=== PATIENT | female | born 1980 | race Caucasian/White ===

== ENCOUNTER 2017-05-22 06:36 | Emergency (ER) | payer OTHER, MEDICARE ==
[2017-05-22 08:22] LABS: ADD MAN DIFF? NO
[2017-05-22 08:26] LABS: WHITE BLOOD COUNT 13.6 10^3/ul (4.8-10.8)
[2017-05-22 08:26] LABS: BASOPHIL # 0.1 10^3/ul (0.0-0.1); BASOPHILS % 0.4 % (0.0-2.0); EOSINOPHILS % 0.1 % (0.0-7.0); HEMATOCRIT 31.4 % (37.0-47.0); HEMOGLOBIN 9.3 g/dl (12.0-16.0); LYMPHOCYTES # 2.2 10^3/ul (0.8-2.9); LYMPHOCYTES % 16.1 % (15.0-51.0); MEAN CORPUSCULAR HEMOGLOBIN 19.4 pg (29.0-33.0); MEAN CORPUSCULAR HGB CONC 29.6 g/dl (32.0-37.0); MEAN CORPUSCULAR VOLUME 65.4 fl (82.0-101.0); MEAN PLATELET VOLUME 9.4 fl (7.4-10.4); MONOCYTE # 0.7 10^3/ul (0.3-0.9); MONOCYTES % 4.9 % (0.0-11.0); NEUTROPHIL # 10.5 10^3/ul (1.6-7.5); NEUTROPHILS % 77.5 % (39.0-77.0); PLATELET COUNT 416 10^3/UL (140-415); RED CELL DISTRIBUTION WIDTH 20.9 % (11.5-14.5)
[2017-05-22] MEDS: LORAZEPAM 2 MG INJ IV (08:30)
[2017-05-22] MEDS: SOD CHLORIDE 0.9% 1,000 ML IV (08:30)
[2017-05-22 09:17] LABS: ANION GAP 18 (8-16); BLOOD UREA NITROGEN 7 mg/dl (7-20); CALCIUM 9.7 mg/dl (8.4-10.2); CARBON DIOXIDE 25 mmol/L (21-31); CHLORIDE 105 mmol/L (97-110); CREATININE 0.63 mg/dl (0.44-1.00); GLUCOSE 111 mg/dl (70-220); POTASSIUM 4.1 mmol/L (3.5-5.1); SODIUM 144 mmol/L (135-144)
[2017-05-22 09:28] LABS: TROPONIN-I 0.044 ng/ml (0.00-0.12)
== END 2017-05-22 10:49 | disposition home or self-care (01) ==
LOC: E/R 06:36
DX: F15.920 Other stimulant use, unspecified with intoxication, uncomplicated (principal); D64.9 Anemia, unspecified; R06.02 Shortness of breath; Z87.891 Personal history of nicotine dependence
CPT/HCPCS: 36415; 71045; 80048; 84484; 84703; 85025; 93005; 96361; 96374; 99285-25

== ENCOUNTER 2018-01-01 18:56 | Emergency (ER) | payer OTHER ==
[2018-01-01] MEDS: ACETAMINOPHEN 325 MG TAB PO (20:19)
== END 2018-01-01 21:30 | disposition home or self-care (01) ==
LOC: FTE 18:56
DX: T19.2XXA Foreign body in vulva and vagina, initial encounter (principal); F17.210 Nicotine dependence, cigarettes, uncomplicated; X58.XXXA Exposure to other specified factors, initial encounter; Y92.9 Unspecified place or not applicable
CPT/HCPCS: 99284; Z7502